=== PATIENT | male | born 1955 | race Caucasian/White ===

== ENCOUNTER 2017-07-27 10:21 | Emergency (ER) | payer BC ==
--- NOTE | 2017-07-27 10:41 | ER Document Report ---
ED Medical Screen (RME) - General Chief Complaint: Chest Tightness Stated Complaint: BLOOD PRESSURE CONCERN Time Seen by Provider: 07/27/17 10:39 Mode of Arrival: Wheelchair Information source: Patient TRAVEL OUTSIDE OF THE [place] IN LAST 30 DAYS: No - HPI Patient complains to provider of: CP Onset: This morning - pt with h/o TX with stents last year with onset of SSCP earlier this am. Took sl ntg and ASA with improvement of symptoms - Related Data Allergies/Adverse Reactions: No Known Allergies Allergy (Verified 07/27/17 10:22) Physical Exam - Vital signs Vitals: Temp Pulse Resp BP Pulse Ox 97.9 F 55 L 18 145/91 H 96 07/27/17 10:32 07/27/17 10:32 07/27/17 10:32 07/27/17 10:32 07/27/17 10:32 Course - Vital Signs Vital signs: Temp Pulse Resp BP Pulse Ox 97.9 F 55 L 18 145/91 H 96 07/27/17 10:32 07/27/17 10:32 07/27/17 10:32 07/27/17 10:32 07/27/17 10:32
--- NOTE | 2017-07-27 11:01 | RADIOLOGY REPORT (SQ) ---
EXAM DESCRIPTION: CHEST PA/LAT COMPLETED DATE/TIME: 07/27/2017 10:53 am REASON FOR STUDY: cp COMPARISON: None. EXAM PARAMETERS: NUMBER OF VIEWS: two views TECHNIQUE: Digital Frontal and Lateral radiographic views of the chest acquired. RADIATION DOSE: NA LIMITATIONS: none FINDINGS: LUNGS AND PLEURA: No infiltrate , masses or pneumothorax. No pleural effusion. MEDIASTINUM AND HILAR STRUCTURES: No masses or contour abnormalities. HEART AND VASCULAR STRUCTURES: Heart normal size. No evidence for failure. BONES:Dorsal spondylosis HARDWARE: None in the chest. IMPRESSION: NO SIGNIFICANT RADIOGRAPHIC FINDING IN THE CHEST. TECHNICAL DOCUMENTATION: JOB ID: [id number] 2010 [employer]- All Rights Reserved
[2017-07-27 11:16] LABS: ABSOLUTE BASOPHILS # (AUTO) 0.1 10^3/uL (0.0-0.2); ABSOLUTE EOSINOPHILS # (AUTO) 0.1 10^3/uL (0.0-0.6); ABSOLUTE LYMPHOCYTES (AUTO) 2.1 10^3/uL (0.5-4.7); ABSOLUTE MONOCYTES (AUTO) 0.5 10^3/uL (0.1-1.4); ABSOLUTE NEUT (AUTO) 3.7 10^3/uL (1.7-8.2); BASOPHILS % (AUTO) 0.9 % (0-2); EOSINOPHILS % (AUTO) 1.5 % (0-6); HEMATOCRIT 44.8 % (37.9-51.0); HEMOGLOBIN 15.3 g/dL (13.5-17.0); LYMPHOCYTES % (AUTO) 32.8 % (13-45); MEAN CORPUSCULAR HEMOGLOBIN 31.5 pg (27.0-33.4); MEAN CORPUSCULAR HGB CONC 34.2 g/dL (32.0-36.0); MEAN CORPUSCULAR VOLUME 92 fl (80-97); MONOCYTES % (AUTO) 7.8 % (3-13); PLATELET COUNT 205 10^3/uL (150-450); RED BLOOD COUNT 4.86 10^6/uL (4.35-5.55); RED CELL DISTRIBUTION WIDTH 12.6 % (11.5-14.0); TOTAL CELLS COUNTED % (AUTO) 100 %; WHITE BLOOD COUNT 6.4 10^3/uL (4.0-10.5)
[2017-07-27 11:40] LABS: CREATINE KINASE MB 1.18 ng/mL (<4.55)
[2017-07-27 11:41] LABS: TROPONIN I < 0.012 ng/mL
[2017-07-27 11:43] LABS: ALANINE AMINOTRANSFERASE 58 U/L (21-72); ALBUMIN 4.2 g/dL (3.5-5.0); ALKALINE PHOSPHATASE 66 U/L (38-126); ANION GAP 7 (5-19); ASPARTATE AMINO TRANSFERASE 37 U/L (17-59); BILIRUBIN,DIRECT 0.2 mg/dL (0.0-0.4); BILIRUBIN,TOTAL 0.6 mg/dL (0.2-1.3); BLOOD UREA NITROGEN 12 mg/dL (7-20); CALCIUM 9.7 mg/dL (8.4-10.2); CARBON DIOXIDE 29 mmol/L (22-30); CHLORIDE 103 mmol/L (98-107); CREATINE KINASE 195 U/L (55-170); GLUCOSE 103 mg/dL (75-110); POTASSIUM 4.2 mmol/L (3.6-5.0); TOTAL PROTEIN 6.9 g/dL (6.3-8.2)
--- NOTE | 2017-07-27 13:20 | EKG REPORT ---
SEVERITY:- BORDERLINE ECG - SINUS RHYTHM BORDERLINE LEFT AXIS DEVIATION NONSPECIFIC ST-T CHANGES- INFERIOR LEADS : Confirmed by: Aman Rosales MD 27-Jul-2017 13:19:28
--- NOTE | 2017-07-27 14:44 | ER Document Report ---
ED General - General Chief Complaint: Chest Tightness Stated Complaint: BLOOD PRESSURE CONCERN Time Seen by Provider: 07/27/17 10:39 Mode of Arrival: Wheelchair TRAVEL OUTSIDE OF THE [place] IN LAST 30 DAYS: No - HPI Notes: 62-year-old male with a history of ND with 2 stents placed in June 2016 presents today with complaints of chest pain that started at 07 30 this morning. Patient states he started to feel nauseous, lightheaded and a little warm. Took nitro sublingual and 5 minutes later took another which seemed to relieve his chest pain. Patient took his blood pressure prior to taking nitro and it was 160/101. Patient states he felt pressure and tightness. 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 Denies any shortness of breath, vomiting, diarrhea. Denies any weakness in his bilateral upper or lower extremities. Denies any numbness and tingling in bilateral upper and lower extremities. Denies any speech changes. Patient states he was sitting at his office when his symptoms started. Denies any fevers or chills. Denies any URI or flulike symptoms. Patient states his symptoms felt exactly like his heart attack that he had last June. - Related Data Allergies/Adverse Reactions: No Known Allergies Allergy (Verified 07/27/17 10:22) Past Medical History - General Information source: Patient - Social History Smoking Status: Former Smoker Chew tobacco use (# tins/day): No Frequency of alcohol use: None Drug Abuse: None Family History: Hyperlipidemia, Hypertension Patient has suicidal ideation: No Patient has homicidal ideation: No - Past Medical History Cardiac Medical History: Reports: Hx Heart Attack - jun 2015, Hx Hypercholesterolemia, Hx Hypertension Renal/ Medical History: Denies: Hx Peritoneal Dialysis Past Surgical History: Reports: Hx Cardiac Surgery - 2 stents, Hx Tonsillectomy Review of Systems - Review of Systems Constitutional: See HPI EENT: No symptoms reported Cardiovascular: See HPI Respiratory: No symptoms reported Gastrointestinal: No symptoms reported Genitourinary: No symptoms reported Male Genitourinary: No symptoms reported Musculoskeletal: No symptoms reported Skin: No symptoms reported Hematologic/Lymphatic: No symptoms reported Neurological/Psychological: No symptoms reported Physical Exam - Vital signs Vitals: Temp Pulse Resp BP Pulse Ox 97.9 F 55 L 18 145/91 H 96 07/27/17 10:32 07/27/17 10:32 07/27/17 10:32 07/27/17 10:32 07/27/17 10:32 - General General appearance: Appears well In distress: None - HEENT Tympanic membrane: Normal Mouth/Lips: Normal Mucous membranes: Normal Pharynx: Normal Neck: Normal - Respiratory Respiratory status: No respiratory distress Chest status: Nontender Breath sounds: Normal Chest palpation: Normal - Cardiovascular Rhythm: Bradycardia Heart sounds: Normal auscultation Murmur: No Normal capillary refill: Yes - Abdominal Inspection: Normal Distension: No distension Bowel sounds: Normal Tenderness: Nontender Organomegaly: No organomegaly - Back Back: Normal, Nontender - Extremities General upper extremity: Normal inspection, Nontender, Normal strength, Normal temperature General lower extremity: Normal inspection, Nontender, Normal strength, Normal temperature - Neurological Neuro grossly intact: Yes Cognition: Normal Orientation: AAOx4 [place] Coma Scale Eye Opening: Spontaneous [place] Coma Scale Verbal: Oriented [place] Coma Scale Motor: Obeys Commands [place] Coma Scale Total: 15 Speech: Normal Cranial nerves: Normal Motor strength normal: LUE, RUE, LLE, RLE Additional motor exam normals: Equal card reader Sensory: Normal - Psychological Associated symptoms: Normal affect, Normal mood - Skin Skin Temperature: Warm Skin Moisture: Dry Skin Color: Normal Course - Re-evaluation Re-evalutation: 07/27/17 14:45 First set of cardiac enzymes and EKG unremarkable. Will redraw cardiac. Labs unremarkable, chest x-ray negative for any acute, EKG shows non-STEMI. Patient is having no active chest pain. Vital signs are stable. Probably 4 hours ago repeat troponins remained stable. Advised patient that since he did have chest pain relief after taking nitro's, we would like to observe him for rule out ND. Consulted with Dr. Rock, hospitalist, accepted for cardiac observation for rule out ND. - Vital Signs Vital signs: Temp Pulse Resp BP Pulse Ox 97.9 F 55 L 17 136/88 H 94 07/27/17 10:32 07/27/17 10:32 07/27/17 17:01 07/27/17 17:01 07/27/17 17:01 - Laboratory Result Diagrams: 07/27/17 10:56 07/27/17 10:56 Laboratory results interpreted by me: 07/27/17 10:56 Creatine Kinase 195 H Discharge - Discharge Clinical Impression: Angina at rest Condition: Good Disposition: ADMITTED INPATIENT Admitting Provider: [place] [facility] Unit Admitted: Telemetry
[2017-07-27 15:57] LABS: CREATINE KINASE MB 1.02 ng/mL (<4.55)
[2017-07-27 15:58] LABS: TROPONIN I < 0.012 ng/mL
[2017-07-27 18:10] VITALS: BP 159/90
== END 2017-07-27 18:08 | disposition left against medical advice (07) ==
LOC: ER 10:21 → EH 17:19 → UNDOADMIN 17:19 → UNDODISIN 18:08 → ER 18:08
DX: I20.9 Angina pectoris, unspecified (principal); I10 Essential (primary) hypertension; I25.2 Old myocardial infarction; R11.0 Nausea; R42 Dizziness and giddiness; Z95.5 Presence of coronary angioplasty implant and graft; Z87.891 Personal history of nicotine dependence
CPT/HCPCS: 36415; 71046; 80053; 82550; 82553; 84484; 85025; 93005; 93010; 99285